=== PATIENT | female | born 1985 | race Caucasian/White ===

== ENCOUNTER 2018-11-15 12:04 | Emergency (ER) | payer MEDICAID ==
[~2018-11-15] VITALS: Ht 175.3 cm; Wt 89.1 kg
[2018-11-15 12:13] VITALS: BP 136/83; TEMP 97.1
[2018-11-15] MEDS ORDERED: WELLBUTRIN XL300 M1 PO (12:29)
[2018-11-15] MEDS ORDERED: TYLENOL 500MG500 MG PO (12:30)
[2018-11-15] MEDS ORDERED: MOTRIN 200200 MG/TAB PO (12:31)
[2018-11-15] MEDS ORDERED: AMOXICILLIN 50500 MG PO (13:01)
[2018-11-15] MEDS ORDERED: ULTRAM 50MG TAB50 MG PO (13:01)
[2018-11-15 13:27] VITALS: PULSE 104
== END 2018-11-15 13:27 | disposition home or self-care (01) ==
LOC: COL.ER 12:04
DX: K08.89 Other specified disorders of teeth and supporting structures (principal); F17.210 Nicotine dependence, cigarettes, uncomplicated; Z98.818 Other dental procedure status